=== PATIENT | male | born 1970 | race Hispanic/Latino ===

== ENCOUNTER 2016-08-11 19:07 | Emergency (ER) | payer MEDICAID ==
[2016-08-11 19:10] VITALS: BMI 34.5
[2016-08-11 19:13] VITALS: BP 125/75; PULSE 94; RESP 19; TEMP 97.6; O2SAT 99
--- NOTE | 2016-08-11 19:15 | ED PDOC ---
Arrival/HPI - General Time Seen by Provider: 08/11/16 19:10 Historian: Patient, EMS - History of Present Illness Narrative History of Present Illness (Text): 08/11/16 19:12 46 y/o male, monty gallegos c/o lt. hand 4th digit finger injury x 2 hours. Pt. stated that he accidentally fall on the lt. hand 4th digit which it is currently deformed, painful to move, no skin breaking, no fever or chills, no headache or night sweat, no dizziness, no other medical or psychological complaints. Past Medical History - Provider Review Nursing Documentation Reviewed: Yes - Infectious Disease Hx of Infectious Diseases: None - Cardiac Hx Cardiac Disorders: No Hx Angina: No Hx Atrial Fibrillation: No Hx Cardiac Arrhythmia: No Hx Circulatory Problems: No Hx Congestive Heart Failure: No Hx [place]: No Hx Heart Murmur: No Hx Heart Transplant: No Hx Hypertension: No Hx Hypotension: No Hx Internal Defibrillator: No Hx Mitral Valve Prolapse: No Hx Pacemaker: No Hx Peripheral Edema: No Hx Peripheral Vascular Disease: No - Pulmonary Hx Respiratory Disorders: No Hx Asthma: No Hx Bronchitis: No Hx Chronic Obstructive Pulmonary Disease (COPD): No Hx Emphysema: No Hx Lung Cancer: No Hx Pneumonia: No Hx Pulmonary Edema: No Hx Pulmonary Embolism: No Hx Respiratory Aspiration: No Hx Respiratory Tract Infection: No Hx Sleep Apnea: No Hx Tuberculosis: No - Neurological Hx Neurological Disorder: No Hx Alzheimer's Disease: No HX Cerebrovascular Accident: No Hx Dementia: No Hx Dizziness: No Hx Meningitis: No Hx Migraine: No Hx Multiple Sclerosis: No Hx Paralysis: No Hx Parkinson's Disease: No Hx Seizures: No Hx Syncope: No Hx Transient Ischemic Attacks (TIA): No Hx Vertigo: No - HEENT Hx HEENT Disorder: No Hx Blind: No Hx Cataracts: No Hx Deafness: No Hx Difficulty Chewing: No Hx Epistaxis: No Hx Glaucoma: No Hx Macular Degeneration: No - Renal Hx Renal Disorder: No - Endocrine/Metabolic Hx Endocrine Disorders: No - Hematological/Oncological Hx Blood Disorders: Yes Hx Cancer: No Hx Hepatitis C: Yes - Integumentary Hx Dermatological Disorder: No - Musculoskeletal/Rheumatological Hx Back Pain: Yes Hx Falls: No Hx Fractures: Yes (L1; with rodding) Other/Comment: spinal reconstructions surgery in past - Gastrointestinal Hx Gastrointestinal Disorders: No - Genitourinary/Gynecological Hx Genitourinary Disorders: No Hx Sexually Transmitted Diseases: No - Psychiatric Hx Anxiety: Yes Hx Substance Use: Yes (Heroin and Oxycodone) - Surgical History Hx Musculoskeletal Surgery: Yes ("FX LUMBAR -SPINAL FUSION AND RODS PLACED T10- L3") Other/Comment: 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 varicose veins surgery - Anesthesia Hx Anesthesia: Yes Hx Anesthesia Reactions: No Hx Malignant Hyperthermia: No - Suicidal Assessment Feels Threatened In Home Enviroment: No Family/Social History - Physician Review Nursing Documentation Reviewed: Yes Family/Social History: Unknown Family HX Smoking Status: Former Smoker Hx Alcohol Use: No Hx Substance Use: Yes (Heroin and Oxycodone) Allergies/Home Meds Allergies/Adverse Reactions: Allergies No Known Allergies Allergy (Verified 08/11/16 19:10) Home Medications: Home Meds Medication Instructions Recorded Confirmed Oxycodone Hydrochloride [Oxycodone] 30 mg PO TID 02/10/14 08/11/16 Review of Systems - Review of Systems Constitutional: absent: Fatigue, Fevers Eyes: absent: Vision Changes ENT: absent: Hearing Changes Respiratory: absent: Cough Cardiovascular: absent: Chest Pain Gastrointestinal: absent: Abdominal Pain, Diarrhea, Nausea, Vomiting Musculoskeletal: Arthralgias, Joint Swelling. absent: Back Pain, Neck Pain, Myalgias Skin: absent: Rash, Pruritis, Skin Lesions Neurological: absent: Headache, Dizziness, Focal Weakness, Gait Changes Hemo/Lymphatic: absent: Adenopathy Physical Exam Vital Signs Temp Pulse Resp BP Pulse Ox 08/11/16 19:12 97.6 F 94 H 19 125/75 99 Appearance: Positive for: Well-Appearing, Non-Toxic, Comfortable Pain Distress: Moderate Mental Status: Positive for: Alert and Oriented X 3 - Systems Exam Head: Present: Atraumatic, Normocephalic Pupils: Present: PERRL Extroacular Muscles: Present: EOMI Conjunctiva: Present: Normal Mouth: Present: Moist Mucous Membranes Neck: Present: Normal Range of Motion Respiratory/Chest: Present: Clear to Auscultation, Good Air Exchange. No: Respiratory Distress, Accessory Muscle Use Cardiovascular: Present: Regular Rate and Rhythm, Normal S1, S2. No: Murmurs Abdomen: Present: Normal Bowel Sounds. No: Tenderness, Distention, Peritoneal Signs Back: Present: Normal Inspection Upper Extremity: Present: Normal Inspection, Other (Lt. hand: +ttp and swelling with deformity noted on the 4th digit PIPJ region with skin intact, no laceration or abrasion, FROM without limitation, sensation intact, motor 5/5, + radial pulse, capillary refill< 2 seconds, neurovascular intact. ). No: Cyanosis, Edema Lower Extremity: Present: Normal Inspection. No: Edema Neurological: Present: GCS=15, Speech Normal, Motor Func Grossly Intact, Gait Normal, Memory Normal Skin: Present: Warm, Dry, Normal Color. No: Rashes Psychiatric: Present: Alert, Oriented x 3, Normal Insight, Normal Concentration Medical Decision Making ED Course and Treatment: 08/11/16 19:15 -Motrin -xray 08/11/16 19:49 -sensation intact, motor 5/5, neurovascular intact, no sedation or digit block is performed, ice pack on the finger for 2 minutes, lt. hand 4th digit middle phalanx pulled dorsally and axial traction which the deformity resolved, pain resolved, finger splint applied, sensation intact, motor 5/5, +radial pulse, capillary refill< 2 seconds, neurovascular intact. -post reduction with success. -Discharge home with finger splint, ice compression, motrin, keep the splint on , follow up with your own pmd and hand specialist within 2 days, return to the ER for any new or worsening signs or symptoms. - RAD Interpretation Radiology Orders: 08/11/16 19:11 HAND LEFT 4TH DIGIT (FINGER) [RAD] Stat 08/11/16 19:35 HAND LEFT 4TH DIGIT (FINGER) [RAD] Stat Initial: complete dislocation of the 4th PIPJ with no fracture. Post reduction: complete successful reduction of the 4th PIPJ Manager Payroll: Radiologist - Medication Orders Current Medication Orders: Discontinued Medications Oxycodone/Acetaminophen (Percocet 5/325 Mg Tab) 1 tab PO STAT STA Stop: 08/11/16 19:51 Last Admin: 08/11/16 20:00 Dose: 1 tab Procedures - Joint Reduction Conscious Sedation: No (lt. hand 4th digit PIPJ reduction) Reduction Attempts: 1 Pre-Procedure NV Exam: Yes Post Joint Reduction Film: joint reduced Progress: -sensation intact, motor 5/5, neurovascular intact, no sedation or digit block is performed, ice pack on the finger for 2 minutes, lt. hand 4th digit middle phalanx pulled dorsally and axial traction which the deformity resolved, pain resolved, finger splint applied, sensation intact, motor 5/5, +radial pulse, capillary refill< 2 seconds, neurovascular intact. Disposition/Present on Arrival - Present on Arrival Any Indicators Present on Arrival: No History of DVT/PE: No History of Uncontrolled Diabetes: No Urinary Catheter: No History of Decub. Ulcer: No History Surgical Site Infection Following: Orthopedic Procedures - Disposition Have Diagnosis and Disposition been Completed?: Yes Diagnosis: Finger dislocation Disposition: HOME/ ROUTINE Disposition Time: 19:20 Patient Plan: Discharge Condition: IMPROVED Additional Instructions: Discharge home with finger splint, ice compression, motrin, keep the splint on, follow up with your own pmd and hand specialist within 2 days, return to the ER for any new or worsening signs or symptoms. Prescriptions: Meloxicam [Mobic] 15 mg PO DAILY PRN #10 tab PRN Reason: Other Referrals: Rhonda Pierce MD [Primary Care Provider] - Follow up with primary Chico Saravia MD [Non-Staff] - Follow up with primary Forms: WORK NOTE
[2016-08-11] MEDS ORDERED: Oxycodone/Acetaminophen 5/325 mg Tab PO STA (19:50)
--- NOTE | 2016-08-12 08:22 | RAD ---
PROCEDURE: Left Hand Radiographs. HISTORY: post reduction COMPARISON: Earlier same day FINDINGS: BONES: Normal. No fracture. JOINTS: There is successful reduction of the dislocation of the 4th PIP joint SOFT TISSUES: Normal. OTHER FINDINGS: None. IMPRESSION: There is successful reduction of the dislocation of the 4th PIP joint
--- NOTE | 2016-08-12 08:28 | RAD ---
PROCEDURE: Left Hand Radiographs. HISTORY: 4th PIPJ dislocation COMPARISON: None. FINDINGS: BONES: Normal. No fracture. JOINTS: There is complete dislocation of the 4th PIP joint with overlap. SOFT TISSUES: Normal. OTHER FINDINGS: None. IMPRESSION: Complete dislocation of the 4th PIP joint with overlap. No fracture
== END 2016-08-11 20:36 | disposition home or self-care (01) ==
LOC: ED 19:07
DX: S63.285A Dislocation of proximal interphalangeal joint of left ring finger, initial encounter (principal); W17.89XA Other fall from one level to another, initial encounter; Z87.891 Personal history of nicotine dependence

== ENCOUNTER 2016-10-25 22:43 | Emergency (ER) | payer MEDICAID ==
[2016-10-25 22:54] VITALS: BMI 37.5
[2016-10-25] MEDS ORDERED: TDAP Vaccine 0.5 mL Syr IM ONE (23:02)
--- NOTE | 2016-10-25 23:19 | ED PDOC ---
Arrival/HPI <SimeonKristian gastelum - Last Filed: 10/25/16 23:39> - General Historian: Patient <Trisha Nielsen - Last Filed: 10/26/16 00:45> - General Chief Complaint: Abnormal Skin Integrity Time Seen by Provider: 10/25/16 23:00 - History of Present Illness Narrative History of Present Illness (Text): 10/25/16 23:02 46-year-old male presents today with head injury and lacerations status post fall. Patient states he was walking slipped on water fell backwards hitting his head on the ground. He denies loss of consciousness. Denies headache dizziness or weakness. Patient complaining only of slight pain to the laceration site.unsure of last tetanus shot. denies neck or back pain. incident occurred prior to arrival. no other complaints. (Trisha Nielsen) Past Medical History - Provider Review Nursing Documentation Reviewed: Yes - Travel History Have you recently traveled outside [place] w/in the past 3 mons?: No - Infectious Disease Hx of Infectious Diseases: None - Tetanus Immunization Tetanus Immunization: Unknown - Cardiac Hx Cardiac Disorders: No Hx Angina: No Hx Atrial Fibrillation: No Hx Cardiac Arrhythmia: No Hx Circulatory Problems: No Hx Congestive Heart Failure: No Hx [place]: No Hx Heart Murmur: No Hx Heart Transplant: No Hx Hypertension: No Hx Hypotension: No Hx Internal Defibrillator: No Hx Mitral Valve Prolapse: No Hx Pacemaker: No Hx Peripheral Edema: No Hx Peripheral Vascular Disease: No - Pulmonary Hx Respiratory Disorders: No Hx Asthma: No Hx Bronchitis: No Hx Chronic Obstructive Pulmonary Disease (COPD): No Hx Emphysema: No Hx Lung Cancer: No Hx Pneumonia: No Hx Pulmonary Edema: No Hx Pulmonary Embolism: No Hx Respiratory Aspiration: No Hx Respiratory Tract Infection: No Hx Sleep Apnea: No Hx Tuberculosis: No - Neurological Hx Neurological Disorder: No Hx Alzheimer's Disease: No HX Cerebrovascular Accident: No Hx Dementia: No Hx Dizziness: No Hx Meningitis: No Hx Migraine: No Hx Multiple Sclerosis: No Hx Paralysis: No Hx Parkinson's Disease: No Hx Seizures: No Hx Syncope: No Hx Transient Ischemic Attacks (TIA): No Hx Vertigo: No - HEENT Hx HEENT Disorder: No Hx Blind: No Hx Cataracts: No Hx Deafness: No Hx Difficulty Chewing: No Hx Epistaxis: No Hx Glaucoma: No Hx Macular Degeneration: No - Renal Hx Renal Disorder: No - Endocrine/Metabolic Hx Endocrine Disorders: No - Hematological/Oncological Hx Blood Disorders: Yes Hx Cancer: No Hx Hepatitis C: Yes - Integumentary Hx Dermatological Disorder: No - Musculoskeletal/Rheumatological Other/Comment: spinal reconstructions surgery in past - Gastrointestinal Hx Gastrointestinal Disorders: No - Genitourinary/Gynecological Hx Genitourinary Disorders: No Hx Sexually Transmitted Diseases: No - Psychiatric Hx Anxiety: Yes Hx Substance Use: Yes (Heroin and Oxycodone) - Surgical History Hx Musculoskeletal Surgery: Yes ("FX LUMBAR -SPINAL FUSION AND RODS PLACED T10- L3") Other/Comment: 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 varicose veins surgery - Anesthesia Hx Anesthesia: Yes Hx Anesthesia Reactions: No Hx Malignant Hyperthermia: No - Suicidal Assessment Feels Threatened In Home Enviroment: No <Trisha Nielsen - Last Filed: 10/26/16 00:45> Family/Social History - Physician Review Nursing Documentation Reviewed: Yes Family/Social History: Unknown Family HX Smoking Status: Former Smoker Hx Alcohol Use: No Hx Substance Use: Yes (Heroin and Oxycodone) <Trisha Nielsen - Last Filed: 10/26/16 00:45> Allergies/Home Meds <Kristian Hendrix - Last Filed: 10/25/16 23:39> <Trisha Nielsen - Last Filed: 10/26/16 00:45> Allergies/Adverse Reactions: Allergies No Known Allergies Allergy (Verified 10/25/16 22:59) Home Medications: Home Meds Medication Instructions Recorded Confirmed Oxycodone Hydrochloride [Oxycodone] 30 mg PO TID 02/10/14 10/25/16 Review of Systems - Review of Systems Constitutional: absent: Fatigue, Fevers Respiratory: absent: SOB, Cough Cardiovascular: absent: Chest Pain, Palpitations Gastrointestinal: absent: Abdominal Pain, Nausea, Vomiting Musculoskeletal: absent: Arthralgias, Back Pain, Neck Pain Skin: Laceration Neurological: absent: Headache, Dizziness Psychiatric: absent: Anxiety, Depression <Trisha Nielsen - Last Filed: 10/26/16 00:45> Physical Exam Vital Signs Reviewed: Yes Temperature: Afebrile Blood Pressure: Hypertensive Pulse: Regular Respiratory Rate: Normal Appearance: Positive for: Well-Appearing, Non-Toxic, Comfortable Pain Distress: None Mental Status: Positive for: Alert and Oriented X 3 - Systems Exam Head: Present: Tenderness, Swelling, Laceration (there is a large 7cm jagged superficial laceration to the posterior scalp; no active bleeding; no step offs or crepitus. ) Pupils: Present: PERRL Extroacular Muscles: Present: EOMI Conjunctiva: Present: Normal Ears: Present: Normal, NORMAL TM Mouth: Present: Moist Mucous Membranes, Normal Tounge. No: Drooling, Trismus Pharnyx: Present: Normal. No: ERYTHEMA, EXUDATE Nose (External): Present: Atraumatic Neck: Present: Normal Range of Motion. No: MIDLINE TENDERNESS, Paraspinal Tenderness Respiratory/Chest: Present: Clear to Auscultation, Good Air Exchange. No: Respiratory Distress, Accessory Muscle Use Cardiovascular: Present: Regular Rate and Rhythm, Normal S1, S2. No: Murmurs Abdomen: No: Tenderness Back: Present: Normal Inspection. No: Midline Tenderness, Paraspinal Tenderness Upper Extremity: Present: Normal ROM Lower Extremity: Present: Normal ROM Neurological: Present: GCS=15, Speech Normal Skin: Present: Warm, Dry Psychiatric: Present: Alert, Oriented x 3 <Trisha Nielsen - Last Filed: 10/26/16 00:45> Vital Signs Temp Pulse Resp BP Pulse Ox 10/25/16 22:54 98.4 F 94 H 21 163/99 H 94 L Medical Decision Making <Kristian Hendrix - Last Filed: 10/25/16 23:39> <Trisha Nielsen - Last Filed: 10/26/16 00:45> ED Course and Treatment: 10/25/16 23:31 46-year-old male presents today with head injury and scalp laceration status post fall Slightly hypertensive. Afebrile. Alert and oriented in no distress. No neck tenderness. No back tenderness. Ambulates with steady gait. Tetanus updated CAT scan of the head:FINDINGS: Brain: No hemorrhage. No significant white matter disease. No edema. Ventricles: No hydrocephalus. Bones: Skull is intact. Soft tissues: Posterior scalp injury, correlate clinically. Sinuses: No acute sinusitis. Mastoid air cells: No mastoid effusion. IMPRESSION: No CT evidence of acute intracranial abnormality. Posterior scalp injury, correlate clinically. Wound irrigated with copious amounts of normal saline using high pressure irrigation Laceration repair: 9 nisha placed. bacitracin applied. Advised keeping wound clean and dry and return in 10 days for staple removal. Advised immediate return is symptoms worsen persist or if new concerning symptoms develop: High fevers, headache, dizziness, weakness, changes in behavior or mental status Patient verbalizes understanding of discharge instructions and need for immediate followup. all aspects of this case were discussed the attending of record. Impression: Head injury, laceration scalp keep wound clean and dry apply bacitracin twice daily return in 10 days for staple removal return immediately if signs of infection develop; High fevers, increasing pain, redness, swelling or purulent discharge develop. Return immediately if signs of head injury develop; headaches, dizziness, weakness, changes in behavior or mental status return if any other concerning symptoms develop. (Trisha Nielsen) - RAD Interpretation Radiology Orders: 10/25/16 23:00 HEAD W/O CONTRAST [CT] Stat - Medication Orders Current Medication Orders: Discontinued Medications Tetanus/Reduced Diphtheria/Acell Pertussis (Boostrix Vaccine Inj) 0.5 ml IM .ONCE ONE Stop: 10/25/16 23:03 Procedure: Wound Repair - Procedure Procedure: Wound Repair: scalp laceration - Consent Obtained Consent obtained: Verbal - Performed by Performed by: Mid-level Provider - Indications Indication(s):: Laceration - Location Dimensions Length cm: 7cm Depth:: Epidermis - Anesthetic Technique Local/Regional Anesthetic:: Other (NONE (pt refused)) - Debris Debris:: None - Irrigated Irrigated with ml of normal saline: copious amounts of NS using high pressure irrigation - Complexity Complexity:: Simple (one layer) - Wound repair method Sutures:: # (9 nisha) - Complications Complications: NONE - Patient tolerated procedure Patient Tolerated Procedure:: Well <Trisha Nielsen - Last Filed: 10/26/16 00:45> - PA / MAGAZINE SUPERVISOR / Resident Statement MD/DO has reviewed & agrees with the documentation as recorded. <Kristian Hendrix - Last Filed: 10/25/16 23:39> Disposition/Present on Arrival <Kristian Hendrix - Last Filed: 10/25/16 23:39> - Present on Arrival Any Indicators Present on Arrival: No History of DVT/PE: No History of Uncontrolled Diabetes: No Urinary Catheter: No History of Decub. Ulcer: No - Disposition Have Diagnosis and Disposition been Completed?: Yes Disposition Time: 00:35 Patient Plan: Discharge <Trisha Nielsen - Last Filed: 10/26/16 00:45> - Disposition Diagnosis: Head injury, Laceration of scalp Disposition: HOME/ ROUTINE Patient Problems: Current Active Problems Problem Status Onset Head injury Acute Laceration of scalp Acute Condition: GOOD Discharge Instructions (ExitCare): Laceration (ED), Head Injury (ED), Staple Care (ED) Additional Instructions: keep wound clean and dry apply bacitracin twice daily return in 10 days for staple removal return immediately if signs of infection develop; High fevers, increasing pain, redness, swelling or purulent discharge develop. Return immediately if signs of head injury develop; headaches, dizziness, weakness, changes in behavior or mental status return if any other concerning symptoms develop. Prescriptions: Bacitracin OINT 1 applic TP BID #1 tube Referrals: Kari Quinteros MD [Staff Provider] - Follow up with primary [facility] [place] [Outside] - [facility] up with primary [facility] [place] [Outside] - Follow up with primary
--- NOTE | 2016-10-26 00:08 | CT ---
EXAM: CT Head Without Intravenous Contrast CLINICAL HISTORY: 46 years old, male; Injury or trauma; Fall; Patient HX: Fall/head injury/laceration TECHNIQUE: Axial computed tomography images of the head/brain without intravenous contrast. This CT exam was performed using one or more of the following dose reduction techniques: automated exposure control, adjustment of the mA and/or kV according to patient size, and/or use of iterative reconstruction technique. COMPARISON: No relevant prior studies available. FINDINGS: Brain: No hemorrhage. No significant white matter disease. No edema. Ventricles: No hydrocephalus. Bones: Skull is intact. Soft tissues: Posterior scalp injury, correlate clinically. Sinuses: No acute sinusitis. Mastoid air cells: No mastoid effusion. IMPRESSION: No CT evidence of acute intracranial abnormality. Posterior scalp injury, correlate clinically.
[2016-10-26 06:01] VITALS: BP 147/69; PULSE 87; RESP 20; TEMP 98.3; O2SAT 97
== END 2016-10-26 06:02 | disposition home or self-care (01) ==
LOC: ED 22:43
DX: S01.01XA Laceration without foreign body of scalp, initial encounter (principal); W01.0XXA Fall on same level from slipping, tripping and stumbling without subsequent striking against object, initial encounter; Y93.89 Activity, other specified; Y92.89 Other specified places as the place of occurrence of the external cause; Z23 Encounter for immunization

== ENCOUNTER 2016-11-11 16:26 | Emergency (ER) | payer MEDICAID ==
[2016-11-11 16:27] VITALS: BMI 37.5
[2016-11-11 16:34] VITALS: BP 136/96; TEMP 98.2
--- NOTE | 2016-11-11 16:54 | ED PDOC ---
Arrival/HPI - General Chief Complaint: Suture/Staple Removal Time Seen by Provider: 11/11/16 16:50 Historian: Patient - History of Present Illness Narrative History of Present Illness (Text): 11/11/16 16:51 46 yo M presents for staple removal to the scalp, nisha were applied on October 25, he is aware that he waited too long to have them removed. Denies any headache, fevers, chills, d/c or swelling. Has no other complaints. Past Medical History - Provider Review Nursing Documentation Reviewed: Yes - Infectious Disease Hx of Infectious Diseases: None - Tetanus Immunization Tetanus Immunization: Unknown - Cardiac Hx Cardiac Disorders: No Hx Angina: No Hx Atrial Fibrillation: No Hx Cardiac Arrhythmia: No Hx Circulatory Problems: No Hx Congestive Heart Failure: No Hx TX: No Hx Heart Murmur: No Hx Heart Transplant: No Hx Hypertension: No Hx Hypotension: No Hx Internal Defibrillator: No Hx Mitral Valve Prolapse: No Hx Pacemaker: No Hx Peripheral Edema: No Hx Peripheral Vascular Disease: No - Pulmonary Hx Respiratory Disorders: No Hx Asthma: No Hx Bronchitis: No Hx Chronic Obstructive Pulmonary Disease (COPD): No Hx Emphysema: No Hx Lung Cancer: No Hx Pneumonia: No Hx Pulmonary Edema: No Hx Pulmonary Embolism: No Hx Respiratory Aspiration: No Hx Respiratory Tract Infection: No Hx Sleep Apnea: No Hx Tuberculosis: No - Neurological Hx Neurological Disorder: No Hx Alzheimer's Disease: No HX Cerebrovascular Accident: No Hx Dementia: No Hx Dizziness: No Hx Meningitis: No Hx Migraine: No Hx Multiple Sclerosis: No Hx Paralysis: No Hx Parkinson's Disease: No Hx Seizures: No Hx Syncope: No Hx Transient Ischemic Attacks (TIA): No Hx Vertigo: No - HEENT Hx HEENT Disorder: No Hx Blind: No Hx Cataracts: No Hx Deafness: No Hx Difficulty Chewing: No Hx Epistaxis: No Hx Glaucoma: No Hx Macular Degeneration: No - Renal Hx Renal Disorder: No - Endocrine/Metabolic Hx Endocrine Disorders: No - Hematological/Oncological Hx Blood Disorders: Yes Hx Cancer: No Hx Hepatitis C: Yes - Integumentary Hx Dermatological Disorder: No - Musculoskeletal/Rheumatological Hx Musculoskeletal Disorders: Yes Other/Comment: spinal reconstructions surgery in past - Gastrointestinal Hx Gastrointestinal Disorders: No - Genitourinary/Gynecological Hx Genitourinary Disorders: No Hx Sexually Transmitted Diseases: No - Psychiatric Hx Psychophysiologic Disorder: Yes Hx Anxiety: Yes Hx Depression: Yes Hx Substance Use: No (Heroin and Oxycodone) - Surgical History Hx Musculoskeletal Surgery: Yes ("FX LUMBAR -SPINAL FUSION AND RODS PLACED T10- L3") Other/Comment: 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 varicose veins surgery - Anesthesia Hx Anesthesia: Yes Hx Anesthesia Reactions: No Hx Malignant Hyperthermia: No - Suicidal Assessment Feels Threatened In Home Enviroment: No Family/Social History - Physician Review Nursing Documentation Reviewed: Yes Family/Social History: No Known Family HX Smoking Status: Former Smoker Hx Alcohol Use: No Hx Substance Use: No (Heroin and Oxycodone) Allergies/Home Meds Allergies/Adverse Reactions: Allergies No Known Allergies Allergy (Verified 11/11/16 16:34) Home Medications: Home Meds Medication Instructions Recorded Confirmed Alprazolam [Xanax] 2 mg PO TID 11/11/16 11/11/16 Fluoxetine HCl [Prozac] 60 mg PO DAILY 11/11/16 11/11/16 Furosemide [Lasix] 40 mg PO DAILY 11/11/16 11/11/16 Gabapentin [Neurontin] 400 mg PO QID 11/11/16 11/11/16 Potassium Chloride [Klor-Con 10] 10 meq PO DAILY 11/11/16 11/11/16 Prazosin HCl [Minipress] 3 mg PO HS 11/11/16 11/11/16 oxyCODONE [oxyCODONE Immediate 30 mg PO .SIX TIMES PER DAY 11/11/16 11/11/16 Release Tab] Review of Systems - Review of Systems Constitutional: Normal. absent: Fatigue, Weight Change, Fevers Skin: Normal, Laceration (stapled lac to the scalp). absent: Rash, Pruritis, Skin Lesions Neurological: Normal. absent: Headache, Dizziness, Focal Weakness Physical Exam Vital Signs Reviewed: Yes Vital Signs Temp Pulse Resp BP Pulse Ox 11/11/16 16:30 98.2 F 110 H 15 136/96 H 97 Temperature: Afebrile Blood Pressure: Normal Pulse: Tachycardic Respiratory Rate: Normal Appearance: Positive for: Well-Appearing, Non-Toxic, Comfortable Pain Distress: None Mental Status: Positive for: Alert and Oriented X 3 - Systems Exam Head: Present: Atraumatic, Normocephalic, Laceration (fully healed stapled laceration to the occipital scalp). No: Tenderness, Contusion, Swelling Pupils: Present: PERRL Extroacular Muscles: Present: EOMI Conjunctiva: Present: Normal Mouth: Present: Moist Mucous Membranes Neck: Present: Normal Range of Motion. No: MIDLINE TENDERNESS, Paraspinal Tenderness Upper Extremity: Present: Normal Inspection, Normal ROM. No: Edema Lower Extremity: Present: Normal Inspection, Deformity. No: Edema Neurological: Present: GCS=15, CN II-XII Intact, Speech Normal, Motor Func Grossly Intact, Normal Sensory Function Skin: Present: Warm, Dry, Normal Color. No: Rashes Medical Decision Making ED Course and Treatment: 11/11/16 16:53 46 yo M presents for staple removal, nisha were applied on 10/25/16. Has no other complaints. Nisha removed easily by PA, advised to clean the wound. Otherwise to f/u with his pmd. - PA / MANUFACTURING INSPECTOR / Resident Statement / has reviewed & agrees with the documentation as recorded. Disposition/Present on Arrival - Present on Arrival Any Indicators Present on Arrival: No History of DVT/PE: No History of Uncontrolled Diabetes: No Urinary Catheter: No History of Decub. Ulcer: No History Surgical Site Infection Following: None - Disposition Have Diagnosis and Disposition been Completed?: Yes Diagnosis: Removal of staple, Visit for wound check Disposition: HOME/ ROUTINE Disposition Time: 16:54 Patient Plan: Discharge Condition: GOOD Discharge Instructions (ExitCare): Acute Wound Care (ED) Print Language: MALIAN Referrals: Rhonda Pierce MD [Primary Care Provider] - Follow up with primary Forms: [employer] (Ukrainian), WORK NOTE
[2016-11-11 17:08] VITALS: PULSE 97; RESP 16; O2SAT 98
== END 2016-11-11 17:09 | disposition home or self-care (01) ==
LOC: ED 16:26
DX: Z48.02 Encounter for removal of sutures (principal)

== ENCOUNTER 2016-11-16 13:48 | Emergency (ER) | payer MEDICAID ==
[2016-11-16 13:49] VITALS: BMI 37.5
--- NOTE | 2016-11-16 14:40 | ED PDOC ---
Arrival/HPI - General Chief Complaint: Headache Time Seen by Provider: 11/16/16 14:11 Historian: Patient - History of Present Illness Narrative History of Present Illness (Text): 11/16/16 14:40 A 46 year old male, whose past medical history includes anxiety, opioid dependence and back surgery, presents to the emergency department complaining of back pain and headache. Notes back pain is chronic and takes oxycodone prescribed by pain management doctor. Reports to slip and fall three weeks ago. Patient was seen in emergency department and scalp staple removed on 11/11/16. Patient also notes dizziness but denies any vomiting, dysuria or any other complaints at this time. PMD: Dr. Pierce Neurologist: Dr. Isidro Symptom Onset: Sudden Symptom Course: Unchanged Activities at Onset: Rest Context: Home Past Medical History - Provider Review Nursing Documentation Reviewed: Yes - Infectious Disease Hx of Infectious Diseases: None - Tetanus Immunization Tetanus Immunization: Unknown - Cardiac Hx Cardiac Disorders: No Hx Angina: No Hx Atrial Fibrillation: No Hx Cardiac Arrhythmia: No Hx Circulatory Problems: No Hx Congestive Heart Failure: No Hx VT: No Hx Heart Murmur: No Hx Heart Transplant: No Hx Hypertension: No Hx Hypotension: No Hx Internal Defibrillator: No Hx Mitral Valve Prolapse: No Hx Pacemaker: No Hx Peripheral Edema: No Hx Peripheral Vascular Disease: No - Pulmonary Hx Respiratory Disorders: No Hx Asthma: No Hx Bronchitis: No Hx Chronic Obstructive Pulmonary Disease (COPD): No Hx Emphysema: No Hx Lung Cancer: No Hx Pneumonia: No Hx Pulmonary Edema: No Hx Pulmonary Embolism: No Hx Respiratory Aspiration: No Hx Respiratory Tract Infection: No Hx Sleep Apnea: No Hx Tuberculosis: No - Neurological Hx Neurological Disorder: No Hx Alzheimer's Disease: No HX Cerebrovascular Accident: No Hx Dementia: No Hx Dizziness: No Hx Meningitis: No Hx Migraine: No Hx Multiple Sclerosis: No Hx Paralysis: No Hx Parkinson's Disease: No Hx Seizures: No Hx Syncope: No Hx Transient Ischemic Attacks (TIA): No Hx Vertigo: No - HEENT Hx HEENT Disorder: No Hx Blind: No Hx Cataracts: No Hx Deafness: No Hx Difficulty Chewing: No Hx Epistaxis: No Hx Glaucoma: No Hx Macular Degeneration: No - Renal Hx Renal Disorder: No - Endocrine/Metabolic Hx Endocrine Disorders: No - Hematological/Oncological Hx Blood Disorders: Yes Hx Cancer: No Hx Hepatitis C: Yes - Integumentary Hx Dermatological Disorder: No - Musculoskeletal/Rheumatological Hx Musculoskeletal Disorders: Yes Other/Comment: spinal reconstructions surgery in past - Gastrointestinal Hx Gastrointestinal Disorders: No - Genitourinary/Gynecological Hx Genitourinary Disorders: No Hx Sexually Transmitted Diseases: No - Psychiatric Hx Psychophysiologic Disorder: Yes Hx Anxiety: Yes Hx Depression: Yes Hx Substance Use: No (Heroin and Oxycodone) - Surgical History Hx Musculoskeletal Surgery: Yes ("FX LUMBAR -SPINAL FUSION AND RODS PLACED T10- L3") Other/Comment: 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 varicose veins surgery - Anesthesia Hx Anesthesia: Yes Hx Anesthesia Reactions: No Hx Malignant Hyperthermia: No - Suicidal Assessment Feels Threatened In Home Enviroment: No Family/Social History - Physician Review Nursing Documentation Reviewed: Yes Family/Social History: No Known Family HX Smoking Status: Former Smoker Hx Alcohol Use: No Hx Substance Use: No (Heroin and Oxycodone) Allergies/Home Meds Allergies/Adverse Reactions: Allergies No Known Allergies Allergy (Verified 11/11/16 16:34) Home Medications: Home Meds Medication Instructions Recorded Confirmed Alprazolam [Xanax] 2 mg PO TID 11/11/16 11/16/16 Fluoxetine HCl [Prozac] 60 mg PO DAILY 11/11/16 11/16/16 Furosemide [Lasix] 40 mg PO DAILY 11/11/16 11/16/16 Gabapentin [Neurontin] 400 mg PO QID 11/11/16 11/16/16 Potassium Chloride [Klor-Con 10] 10 meq PO DAILY 11/11/16 11/16/16 Prazosin HCl [Minipress] 3 mg PO HS 11/11/16 11/16/16 oxyCODONE [oxyCODONE Immediate 30 mg PO .SIX TIMES PER DAY 11/11/16 11/16/16 Release Tab] Review of Systems - Physician Review All systems were reviewed & negative as marked: Yes - Review of Systems Gastrointestinal: absent: Vomiting Genitourinary Male: absent: Dysuria Musculoskeletal: Back Pain Neurological: Headache, Dizziness Physical Exam Vital Signs Reviewed: Yes Vital Signs Temp Pulse Resp Pulse Ox 11/16/16 14:02 98.7 F 91 H 16 97 Temperature: Afebrile Pulse: Regular Respiratory Rate: Normal Appearance: Positive for: Well-Appearing, Non-Toxic, Comfortable Pain Distress: None Mental Status: Positive for: Alert and Oriented X 3 - Systems Exam Head: Present: Normocephalic, Laceration (posterior scalp healing laceration intact), Other (no acute trauma) Pupils: Present: PERRL Extroacular Muscles: Present: EOMI Conjunctiva: Present: Normal Mouth: Present: Moist Mucous Membranes Neck: No: MIDLINE TENDERNESS Respiratory/Chest: Present: Clear to Auscultation, Good Air Exchange. No: Respiratory Distress, Accessory Muscle Use Cardiovascular: Present: Regular Rate and Rhythm, Normal S1, S2. No: Murmurs Back: Present: Other (old midline scars thoracic, lumbar) Neurological: Present: GCS=15, CN II-XII Intact, Speech Normal Skin: Present: Warm, Dry, Normal Color. No: Rashes Psychiatric: Present: Alert, Oriented x 3, Normal Insight, Normal Concentration Medical Decision Making ED Course and Treatment: 11/16/16 14:41 Impression: A 46 year old male with back pain and headache. Differential: r/o hardware movement Plan: -- Radiology dorsal, thoracic spine -- Radiology LS spine -- Reassess and disposition Prior Visits: Notes and results from previous visits were reviewed. Patient was last seen in the emergency department on 11/11/16 for staple removal to the scalp. Progress Notes: [place]. Patient prescribed 180 oxycodone 30 mg on 10/16/16 and 90 tablets alprazolam 70 mg on 11/05/16. 11/16/16 15:44 Radiographs of the Lumbar Spine Creator : Callum Andrade MD IMPRESSION: No evidence of displacement of spinal rods. 11/16/16 15:40 Radiographs of the Thoracic Spine Creator : Callum Andrade MD IMPRESSION: Normal radiographs of the thoracic spine. - RAD Interpretation Radiology Orders: 11/16/16 14:22 DORSAL (THORACIC) SPINE [RAD] Stat 11/16/16 14:23 LS SPINE WITH OBL > 18 YRS OLD [RAD] Stat - Scribe Statement The provider has reviewed the documentation as recorded by the Rodri Esparza Provider Scribe Attestation: All medical record entries made by the Scribe were at my direction and personally dictated by me. I have reviewed the chart and agree that the record accurately reflects my personal performance of the history, physical exam, medical decision making, and the department course for this patient. I have also personally directed, reviewed, and agree with the discharge instructions and disposition. Disposition/Present on Arrival - Present on Arrival Any Indicators Present on Arrival: No History of DVT/PE: No History of Uncontrolled Diabetes: No Urinary Catheter: No History of Decub. Ulcer: No History Surgical Site Infection Following: None - Disposition Have Diagnosis and Disposition been Completed?: Yes Diagnosis: Headache, Back pain Disposition: HOME/ ROUTINE Disposition Time: 15:45 Patient Plan: Discharge Condition: GOOD Additional Instructions: Continue your pain medications at home as prescribed. Follow up with Dr. Isidro. Return to the emergency department if any new concerning symptoms. Referrals: Rhonda Pierce MD [Primary Care Provider] - Follow up with primary David Isidro MD [Medical Doctor] - Follow up with primary Forms: [employer] (Japanese)
--- NOTE | 2016-11-16 15:39 | RAD ---
HISTORY: fell 3 wks ago; back pain - r/o hardware movement COMPARISON: No prior. FINDINGS: BONES: Alignment maintained. No fracture. DISC SPACES: Normal. SOFT TISSUES: Normal. OTHER FINDINGS: Spinal rods are seen ending in the lower thoracic spine. No complicating factors IMPRESSION: Normal radiographs of the thoracic spine.
--- NOTE | 2016-11-16 15:42 | RAD ---
PROCEDURE: Radiographs of the Lumbar Spine. HISTORY: fall 3 wks ago; back pain - r/o hardware movement COMPARISON: No prior. FINDINGS: BONES: Spinal rods are seen from T11 through L4. No complicating factors. Normal alignment DISC SPACES: There is disc degeneration at L4-5 as well as facet arthropathy. Facet arthropathy at L5-S1 OTHER FINDINGS: None. IMPRESSION: No evidence of displacement of spinal rods
[2016-11-16 15:53] VITALS: RESP 17
[2016-11-16 16:17] VITALS: BP 128/75; PULSE 77; TEMP 98; O2SAT 99
== END 2016-11-16 16:18 | disposition home or self-care (01) ==
LOC: ED 13:48
DX: R51 Headache (principal); M54.9 Dorsalgia, unspecified

== ENCOUNTER 2017-03-21 08:55 | Emergency (ER) | payer MEDICAID ==
[2017-03-21 08:55] VITALS: BMI 37.5
[2017-03-21 09:28] VITALS: RESP 18; TEMP 96.7; O2SAT 96
--- NOTE | 2017-03-21 09:28 | ED PDOC ---
Arrival/HPI - General Chief Complaint: Lower Extremity Problem/Injury Time Seen by Provider: 03/21/17 09:27 Historian: Patient - History of Present Illness Narrative History of Present Illness (Text): 03/21/17 09:27 This 46 year old male, whose past medical history includes anxiety, opioid dependence and back surgery, presents to the emergency department complaining of knee pain and swelling x 2 hours. Patient stated while walking, his left knee "gave out", causing hinm to fall on this left knee. Patient stated he was able to ambulate after fall, but his left knee pain has worsen. Patient denies head injury, neck pain, back pain, hip pain, ankle pain, dizziness, syncope, weakness, paresthesias, abrasion, ecchymosis, calf pain, leg swelling, blood disorder, dm, skin rash, skin infection, recent surgical procedure on his knee, or IV drug use. Time/Duration: 1-3 hours Quality: Aching Context: Home Past Medical History - Provider Review Nursing Documentation Reviewed: Yes - Infectious Disease Hx of Infectious Diseases: None - Tetanus Immunization Tetanus Immunization: Unknown - Cardiac Hx Cardiac Disorders: No - Pulmonary Hx Respiratory Disorders: No - Neurological Hx Neurological Disorder: No - HEENT Hx HEENT Disorder: No - Renal Hx Renal Disorder: No - Endocrine/Metabolic Hx Endocrine Disorders: No - Hematological/Oncological Hx Blood Disorders: Yes Hx Hepatitis C: Yes - Integumentary Hx Dermatological Disorder: No - Musculoskeletal/Rheumatological Hx Musculoskeletal Disorders: Yes Other/Comment: spinal reconstructions surgery in past - Gastrointestinal Hx Gastrointestinal Disorders: No - Genitourinary/Gynecological Hx Genitourinary Disorders: No Hx Sexually Transmitted Diseases: No - Psychiatric Hx Psychophysiologic Disorder: Yes Hx Anxiety: Yes Hx Depression: Yes Hx Substance Use: No (Heroin and Oxycodone) - Surgical History Hx Musculoskeletal Surgery: Yes ("FX LUMBAR -SPINAL FUSION AND RODS PLACED T10- L3") Other/Comment: 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 varicose veins surgery - Anesthesia Hx Anesthesia: Yes - Suicidal Assessment Feels Threatened In Home Enviroment: No Family/Social History - Physician Review Nursing Documentation Reviewed: Yes Family/Social History: Other (noncontributory) Smoking Status: Former Smoker Hx Alcohol Use: No Hx Substance Use: No (Heroin and Oxycodone) Allergies/Home Meds Allergies/Adverse Reactions: Allergies No Known Allergies Allergy (Verified 03/21/17 09:19) Home Medications: Home Meds Medication Instructions Recorded Confirmed oxyCODONE [oxyCODONE Immediate 30 mg PO .SIX TIMES PER DAY 11/11/16 03/21/17 Release Tab] Review of Systems - Review of Systems Constitutional: Normal. absent: Fatigue, Weight Change, Fevers, Night Sweats Eyes: Normal ENT: Normal Respiratory: Normal Cardiovascular: Normal Gastrointestinal: Normal Genitourinary Male: Normal Musculoskeletal: Other (left knee pain and swelling) Skin: Normal Neurological: Normal Endocrine: Normal Hemo/Lymphatic: Normal Psychiatric: Normal Physical Exam Vital Signs Temp Pulse Resp BP Pulse Ox 03/21/17 09:02 96.7 F L 105 H 18 141/79 96 Temperature: Afebrile Blood Pressure: Normal Pulse: Regular Respiratory Rate: Normal Appearance: Positive for: Well-Appearing, Non-Toxic, Comfortable Pain Distress: None Mental Status: Positive for: Alert and Oriented X 3 - Systems Exam Head: Present: Atraumatic, Normocephalic, Other (no raccoon sign. no diaz sign) Pupils: Present: PERRL Extroacular Muscles: Present: EOMI. No: Entrapment Conjunctiva: Present: Normal Ears: Present: Normal, Other (no hemotympanum) Mouth: Present: Moist Mucous Membranes Nose (External): Present: Atraumatic Nose (Internal): Present: Normal Inspection Neck: Present: Normal Range of Motion, Trachea Midline. No: Meningeal Signs, MIDLINE TENDERNESS, Paraspinal Tenderness Respiratory/Chest: Present: Clear to Auscultation, Good Air Exchange. No: Respiratory Distress, Accessory Muscle Use, Retracting, Tender to Palpation Cardiovascular: Present: Regular Rate and Rhythm, Normal S1, S2. No: Murmurs Abdomen: Present: Normal Bowel Sounds. No: Tenderness, Distention, Peritoneal Signs Back: Present: Normal Inspection. No: CVA Tenderness, Midline Tenderness, Paraspinal Tenderness, Pain with Leg Raise Upper Extremity: Present: Normal ROM, NORMAL PULSES. No: Normal Inspection Lower Extremity: Present: NORMAL PULSES, Normal ROM, Tenderness (mild tenderness and swelling on left knee joint. No septic knee joint. No erythema , rash, or ecchymosis). No: Edema, CALF TENDERNESS Neurological: Present: GCS=15, CN II-XII Intact, Speech Normal, Motor Func Grossly Intact, Normal Sensory Function, Normal Cerebellar Funct, Gait Normal, Memory Normal Skin: Present: Warm, Dry, Normal Color. No: Rashes Psychiatric: Present: Alert, Oriented x 3, Normal Insight, Normal Concentration Medical Decision Making ED Course and Treatment: 03/21/17 10:01 Patient came c/o left knee swelling and pain x 2 hours. Patient stated his knee gave out. Patient feels he twisted his knee. Physical exam was unremarkable except for swelling of left knee, but no ecchymosis, abrasion, or septic knee joint. X-rays demonstrates an old Fx of patella with mild effusion of pre-patella joint. [place] bandage and orthopedist follow up were recommended to patient. Patient will be prescribed Naproxen and Pepcid. Patient understand plan, and to remove holland bandage at bedtime. Also, he was recommended RICE Re-evaluation Time: 10:05 Reassessment Condition: Re-examined, Improved - RAD Interpretation Narrative RAD Interpretations (Text): 03/21/17 10:01 PROCEDURE: Left Knee Radiographs. HISTORY: Pain. COMPARISON: None. FINDINGS: BONES: No evidence of acute displaced fracture nor dislocation. . There is slight irregularity along medial margin of the left patellar facet. Findings could represent sequela of old trauma. JOINTS: Joint spaces relatively preserved. No significant osteoarthritis. JOINT EFFUSION: Small suprapatellar joint effusion felt to be present OTHER FINDINGS: None. IMPRESSION: No evidence of acute displaced fracture nor dislocation. . There is slight irregularity along medial margin of the left patellar facet. Findings could represent sequela of old trauma. . Suspect small suprapatellar joint effusion. Radiology Orders: 03/21/17 09:27 KNEE WITH PATELLA LEFT 3 VIEW [RAD] Stat - Medication Orders Current Medication Orders: Discontinued Medications Ketorolac Tromethamine (Toradol) 30 mg IM STAT STA Stop: 03/21/17 09:28 Disposition/Present on Arrival - Present on Arrival Any Indicators Present on Arrival: No History of DVT/PE: No History of Uncontrolled Diabetes: No Urinary Catheter: No History of Decub. Ulcer: No History Surgical Site Infection Following: None - Disposition Have Diagnosis and Disposition been Completed?: Yes Diagnosis: Knee pain, Prepatellar effusion of left knee Disposition: HOME/ ROUTINE Disposition Time: 10:06 Patient Plan: Discharge Condition: IMPROVED Discharge Instructions (ExitCare): Swollen Knee Joint (ED), Knee Pain (ED) Additional Instructions: Call orthopedist for follow up visit in 1-2 days. Keep knee elevated, ice, rest , holland bandage for at least 7 days. Remove holland bandage at bedtime. Take medication as instructed with food. Return to emergency if pain worsen, knee becomes red, or skin rash on left knee, or fever. Prescriptions: Famotidine [Pepcid] 40 mg PO DAILY #10 tablet Naproxen 500 mg PO BID PRN #14 tab PRN Reason: Pain, Severe (8-10) Referrals: Rhonda Pierce MD [Primary Care Provider] - Follow up with primary Callum Cruz DO [Staff Provider] - Follow up with primary Forms: [employer] (Setswana)
--- NOTE | 2017-03-21 09:57 | RAD ---
PROCEDURE: Left Knee Radiographs. HISTORY: Pain. COMPARISON: None. FINDINGS: BONES: No evidence of acute displaced fracture nor dislocation. . There is slight irregularity along medial margin of the left patellar facet. Findings could represent sequela of old trauma. JOINTS: Joint spaces relatively preserved. No significant osteoarthritis. JOINT EFFUSION: Small suprapatellar joint effusion felt to be present OTHER FINDINGS: None. IMPRESSION: No evidence of acute displaced fracture nor dislocation. . There is slight irregularity along medial margin of the left patellar facet. Findings could represent sequela of old trauma. . Suspect small suprapatellar joint effusion.
[2017-03-21 10:55] VITALS: BP 138/80; PULSE 92
== END 2017-03-21 10:55 | disposition home or self-care (01) ==
LOC: ED 08:55
DX: M25.562 Pain in left knee (principal); M25.462 Effusion, left knee; Z87.891 Personal history of nicotine dependence
CPT/HCPCS: 73562; 96372; 99284; J1885

== ENCOUNTER 2017-09-10 13:28 | Emergency (ER) | payer MEDICAID ==
[2017-09-10 13:37] VITALS: BMI 30.8
[2017-09-10 14:16] VITALS: TEMP 98.4
--- NOTE | 2017-09-10 14:29 | CT ---
PROCEDURE: CT HEAD WITHOUT CONTRAST. HISTORY: s/p fall - r/o ICH and fx COMPARISON: None available. TECHNIQUE: Axial computed tomography images were obtained through the head/brain without intravenous contrast. Radiation dose: Total exam DLP = 846 mGy-cm. This CT exam was performed using one or more of the following dose reduction techniques: Automated exposure control, adjustment of the mA and/or kV according to patient size, and/or use of iterative reconstruction technique. FINDINGS: HEMORRHAGE: No intracranial hemorrhage. BRAIN: No mass effect or edema. No atrophy or chronic microvascular ischemic changes. VENTRICLES: Unremarkable. No hydrocephalus. CALVARIUM: Unremarkable. PARANASAL SINUSES: Unremarkable as visualized. No significant inflammatory changes. MASTOID AIR CELLS: Unremarkable as visualized. No inflammatory changes. OTHER FINDINGS: None. IMPRESSION: No acute findings
--- NOTE | 2017-09-10 14:46 | RAD ---
PROCEDURE: Left Wrist Radiographs. HISTORY: r/o fx COMPARISON: None. FINDINGS: BONES: There is no acute fracture identified. There is loss of the normal palmar tilt of the distal radial articular surface suggesting the possibility of an old fracture. There is also a corticated ossific density adjacent to the ulnar styloid process. This may be an old ununited fracture fragment or may reflect a secondary ossification center. There is no carpal fracture seen. JOINTS: Normal. No dislocation. SOFT TISSUES: Normal. OTHER FINDINGS: None. IMPRESSION: No acute fracture.
--- NOTE | 2017-09-10 14:46 | RAD ---
PROCEDURE: Bilateral Elbow Radiographs. HISTORY: r/o fx COMPARISON: None. FINDINGS: BONES: Right Elbow: Normal. No fracture. Left Elbow: Normal. No fracture. JOINTS: Right Elbow: Normal. No osteoarthritis. Left Elbow: Normal. No osteoarthritis. JOINT EFFUSION: Right Elbow: None. Left Elbow: None. SOFT TISSUES: Right Elbow: Normal. Left Elbow: Normal. OTHER FINDINGS: None. IMPRESSION: Normal radiographs of the elbows .
--- NOTE | 2017-09-10 14:47 | RAD ---
PROCEDURE: Right Knee Radiographs. HISTORY: r/o fx COMPARISON: None. FINDINGS: BONES: Normal. No fracture. JOINTS: Normal. No osteoarthritis. JOINT EFFUSION: None. OTHER FINDINGS: None. IMPRESSION: Normal radiographs of the right knee.
--- NOTE | 2017-09-10 14:47 | RAD ---
PROCEDURE: Radiographs of the Chest and Left Ribs. HISTORY: r/o PTX and fx COMPARISON: 08/10/2014. TECHNIQUE: Frontal radiograph of the chest and multiple oblique radiographs of the left ribs were obtained. FINDINGS: LEFT RIBS: No fracture or focal lesion visualized. LUNGS: Clear. PLEURA: No pneumothorax or pleural fluid. CARDIOVASCULAR: Normal sized heart. No pulmonary vascular congestion. OTHER FINDINGS: None. IMPRESSION: Unremarkable radiographs of the chest and left ribs. No left rib fracture.
--- NOTE | 2017-09-10 15:13 | CT ---
PROCEDURE: CT Lumbar Spine without contrast HISTORY: r/o fx COMPARISON: 03/14/2015 TECHNIQUE: Axial computed tomography images were obtained of the lumbar spine without the use of intravenous contrast. Coronal and sagittal reformatted images were created and reviewed. Radiation dose: Total exam DLP = 1493 mGy-cm. This CT exam was performed using one or more of the following dose reduction techniques: Automated exposure control, adjustment of the mA and/or kV according to patient size, and/or use of iterative reconstruction technique. FINDINGS: VERTEBRAE: Surgical hardware is seen associated with spinal rods. Fixation devices are seen at L2 and L3 which project into the spinal canal. These findings are unchanged. DISCS/SPINAL CANAL/NEURAL FORAMINA: L1-2: Unremarkable. L2-3: Unremarkable. L3-4: Unremarkable. L4-5: Disc degeneration with a vacuum disc and moderate disc bulge. L5-S1: Unremarkable. PARASPINAL SOFT TISSUES: Unremarkable. OTHER FINDINGS: None. IMPRESSION: L4-5. Disc degeneration with a vacuum disc and moderate disc bulge. Hardware at the L2 and L3 levels which project into the spinal canal. Spinal rods. Findings are unchanged
--- NOTE | 2017-09-10 15:14 | RAD ---
PROCEDURE: Right Wrist Radiographs. HISTORY: r/o fx COMPARISON: None. FINDINGS: BONES: Normal. No fracture. JOINTS: Normal. No dislocation. SOFT TISSUES: Normal. OTHER FINDINGS: None. IMPRESSION: Normal right wrist radiographs.
--- NOTE | 2017-09-10 15:47 | ED PDOC ---
Arrival/HPI - General Chief Complaint: Trauma Time Seen by Provider: 09/10/17 13:42 - History of Present Illness Narrative History of Present Illness (Text): 09/10/17 16:04 A 47 year old male whose past medical history includes anxiety, opioid dependence and back surgery, presents to the emergency department for a complaint of bilateral wrist, elbow pain, right knee and pain to the forehead s/ p slip and fall today. The patient states that he fell down 8 steps today and hit his head with no LOC. He notes that he had no symptoms prior to the fall. The patient denies fevers, chills, headache, dizziness, chest pain, shortness of breath, dyspnea on exertion, cough, abdominal pain, nausea, vomiting, diarrhea, back pain, neck pain, urinary/bowel changes, or any other complaint. PMD: Dr. Pierce Past Medical History - Provider Review Nursing Documentation Reviewed: Yes - Infectious Disease Hx of Infectious Diseases: None - Tetanus Immunization Tetanus Immunization: Unknown - Cardiac Hx Cardiac Disorders: No - Pulmonary Hx Respiratory Disorders: No - Neurological Hx Neurological Disorder: No - HEENT Hx HEENT Disorder: No - Renal Hx Renal Disorder: No - Endocrine/Metabolic Hx Endocrine Disorders: No - Hematological/Oncological Hx Blood Disorders: Yes Hx Hepatitis C: Yes - Integumentary Hx Dermatological Disorder: No - Musculoskeletal/Rheumatological Hx Musculoskeletal Disorders: Yes Other/Comment: spinal reconstructions surgery in past - Gastrointestinal Hx Gastrointestinal Disorders: No - Genitourinary/Gynecological Hx Genitourinary Disorders: No Hx Sexually Transmitted Diseases: No - Psychiatric Hx Psychophysiologic Disorder: Yes Hx Anxiety: Yes Hx Depression: Yes Hx Substance Use: No (Heroin and Oxycodone) - Surgical History Hx Musculoskeletal Surgery: Yes ("FX LUMBAR -SPINAL FUSION AND RODS PLACED T10- L3") Other/Comment: 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 varicose veins surgery - Anesthesia Hx Anesthesia: Yes - Suicidal Assessment Feels Threatened In Home Enviroment: No Family/Social History - Physician Review Nursing Documentation Reviewed: Yes Family/Social History: No Known Family HX Smoking Status: Former Smoker Hx Alcohol Use: No Hx Substance Use: No (Heroin and Oxycodone) Allergies/Home Meds Allergies/Adverse Reactions: Allergies No Known Allergies Allergy (Verified 03/21/17 09:19) Home Medications: Home Meds Medication Instructions Recorded Confirmed oxyCODONE [oxyCODONE Immediate 30 mg PO .SIX TIMES PER DAY 11/11/16 03/21/17 Release Tab] Physical Exam Vital Signs Reviewed: Yes Vital Signs Temp Pulse Resp BP Pulse Ox 09/10/17 16:15 95 H 19 137/70 100 09/10/17 13:28 98.4 F 116 H 18 140/77 96 Temperature: Afebrile Blood Pressure: Normal Pulse: Tachycardic Respiratory Rate: Normal Appearance: Positive for: Well-Appearing, Non-Toxic, Comfortable Pain Distress: None Mental Status: Positive for: Alert and Oriented X 3 - Systems Exam Head: Present: Atraumatic, Normocephalic Pupils: Present: PERRL Extroacular Muscles: Present: EOMI Conjunctiva: Present: Normal Mouth: Present: Moist Mucous Membranes Neck: Present: Normal Range of Motion Respiratory/Chest: Present: Clear to Auscultation, Good Air Exchange. No: Respiratory Distress, Accessory Muscle Use Cardiovascular: Present: Regular Rate and Rhythm, Normal S1, S2. No: Murmurs Abdomen: No: Tenderness, Distention, Peritoneal Signs Back: Present: Normal Inspection Upper Extremity: Present: Normal Inspection. No: Cyanosis, Edema Lower Extremity: Present: Normal Inspection. No: Edema Neurological: Present: GCS=15, CN II-XII Intact, Speech Normal Skin: Present: Warm, Dry, Normal Color, Abrasion (abrasion to right elbow and hand). No: Rashes Psychiatric: Present: Alert, Oriented x 3, Normal Insight, Normal Concentration Medical Decision Making ED Course and Treatment: 09/10/17 15:45 Impression: Plan: -- Head/ Lumbar Spine CT -- Elbow/ Right Knee/ Left Ribs and Chest/Left and Right Wrist X-Ray -- Labs -- Reassess and disposition Progress Notes: PROCEDURE: CT HEAD WITHOUT CONTRAST Dictated By: Callum Howard MD Dictated Date/ Time: 09/10/17 14:27 IMPRESSION: No acute findings PROCEDURE: Bilateral Elbow Radiographs Dictated By: Pedro Marcum MD Dictated Date/ Time: 09/10/17 14:45 IMPRESSION: Normal radiographs of the elbows. PROCEDURE: Left Wrist Radiographs Dictated By: Pedro Marcum MD Dictated Date/ Time: 09/10/17 14:44 IMPRESSION: Normal radiographs of the elbows. PROCEDURE: Left Knee Radiographs Dictated By: Pedro Marcum MD Dictated Date/ Time: 09/10/17 14:45 IMPRESSION: Normal radiographs of the right knee. PROCEDURE: Radiographs of the Chest and Left Ribs Dictated By: Pedro Marcum MD Dictated Date/ Time: 09/10/17 14:46 IMPRESSION: Unremarkable radiographs of the chest and left ribs. No left rib fracture. PROCEDURE: CT Lumbar Spine without contrast Dictated By: Callum Howard MD Dictated Date/ Time: 09/10/17 15:11 IMPRESSION: L4-5. Disc degeneration with a vacuum disc and moderate disc bulge. Hardware at the L2 and L3 levels which projects wito the spinal canal. Spinal rods. Findings are unchaged. PROCEDURE: Right Wrist Radiographs Dictated By: Callum Howard MD Dictated Date/ Time: 09/10/17 15:13 IMPRESSION: Normal right wrist radiograph. 09/10/17 21:11: Patient was given CT and X- Ray results which were negative for acute fracture. Patient has been in emergency department for several hours and refused to give urine. - RAD Interpretation Radiology Orders: 09/10/17 13:58 HEAD W/O CONTRAST [CT] Stat ELBOWS 3 VIEWS BI [RAD] Stat KNEE RIGHT 2 VIEWS (AP & LAT) [RAD] Stat RIBS LEFT & PA CHEST [RAD] Stat WRIST, LEFT 3 VIEWS [RAD] Stat 09/10/17 14:42 LUMBAR SPINE W/O CONTRAST [CT] Stat WRIST, RIGHT 3 VIEWS [RAD] Stat - Scribe Statement The provider has reviewed the documentation as recorded by the Scribe Ella Razo Provider Scribe Attestation: All medical record entries made by the Scribe were at my direction and personally dictated by me. I have reviewed the chart and agree that the record accurately reflects my personal performance of the history, physical exam, medical decision making, and the department course for this patient. I have also personally directed, reviewed, and agree with the discharge instructions and disposition. Disposition/Present on Arrival - Present on Arrival Any Indicators Present on Arrival: No History of DVT/PE: No History of Uncontrolled Diabetes: No Urinary Catheter: No History of Decub. Ulcer: No History Surgical Site Infection Following: None - Disposition Have Diagnosis and Disposition been Completed?: Yes Diagnosis: Musculoskeletal pain Disposition: HOME/ ROUTINE Disposition Time: 15:15 Condition: GOOD Discharge Instructions (ExitCare): Muscle and Bone Pain (DC) Additional Instructions: Thank you for letting us take care of you today. The emergency medical care you received today was directed at your acute symptoms. If you were prescribed any medication, please fill it and take as directed. It may take several days for your symptoms to resolve. Return to the Emergency Department if your symptoms worsen, do not improve, or if you have any other problems. Please contact your doctor or call one of the physicians/clinics you have been referred to that are listed on the Patient Visit Information form that is included in your discharge packet. Bring any paperwork you were given at discharge with you along with any medications you are taking to your follow up visit. Our treatment cannot replace ongoing medical care by a primary care provider (PCP) outside of the emergency department. Thank you for allowing the [facility] team to be part of your care today. Follow up with your primary care doctor in 3-5 days for re-evaluation and further management. Prescriptions: Cyclobenzaprine [Cyclobenzaprine HCl] 10 mg PO Q8 PRN #20 tab PRN Reason: Muscle Spasm Ibuprofen [Motrin] 600 mg PO Q6 PRN #20 tab PRN Reason: Pain, Moderate (4-7) Forms: [employer] (Setswana)
[2017-09-10 16:15] VITALS: BP 137/70; PULSE 95; RESP 19; O2SAT 100
== END 2017-09-10 16:07 | disposition home or self-care (01) ==
LOC: ED 13:28
DX: M25.532 Pain in left wrist (principal); M25.531 Pain in right wrist; M25.522 Pain in left elbow; M25.521 Pain in right elbow; M25.561 Pain in right knee